=== PATIENT | male | born 1990 | race Caucasian/White ===

== ENCOUNTER 2024-02-09 21:39 | Emergency (ER) | payer OTHER, SELFPAY ==
[2024-02-09] VITALS (8 sets, daily range): BP systolic 144–179; BP diastolic 75–103; PULSE 70–95; RESP 15–26; TEMP 36.3; O2SAT 97–100
--- NOTE | ~2024-02-09 | XR_ITS ---
EXAMINATION: XR chest 1V portable Exam Date/Time: 02/09/2024 22:19 CDT HISTORY: MID chest pain X 45 MINUTES Comparison: None. RESULT: Lines, tubes, and devices: None. Lungs and pleura: Clear. Cardiomediastinal silhouette: Unremarkable. Other: No acute osseous or upper abdominal finding. IMPRESSION: No acute cardiopulmonary process. Reviewed, dictated and finalized at location K.
--- NOTE | 2024-02-09 21:50 | ECG_ITS ---
Test Date: 2024-02-09 21:56:14 Measurements Intervals [place] Rate: 82 P: 39 ND: 137 QRS: 1 QRSD: 92 T: 5 QT: 359 QTc: 420 Interpretive Statements SINUS RHYTHM No previous ECG available for comparison Electronically Signed On 02-10-2024 08:48:39 CDT by Walt Sorenson M.D.
--- NOTE | 2024-02-09 22:18 | ED.GENADULT ---
HPI - General Adult General Chief complaint: Chest Pain Stated complaint: Chest Pain Time Seen by Provider: 02/09/24 22:08 Source: patient Mode of arrival: ambulatory Limitations: no limitations History of Present Illness HPI narrative: patient complained of sharp chest pain and shortness of breath difficulty breathing for about 40 minutes but resolved upon coming into the emergency department. Has a history of a abrasion to his left calf has been treated for cellulitis after he slid into [employer] 8 days ago. He started antibiotics about 5 days ago. He had a lot of swelling in his left leg associated with the injury and the urgent care provider thought if he was not better in a couple days that he might need of ultrasound to rule out a blood clot. He has gotten better and better in the swellings slowly decreased until he started having chest pain tonight and shortness of breath and so he came to the emergency department. Patient stated his chest pain and shortness of breath lasted about 40 minutes while he was watching a movie with his significant other and resolved just before coming to the emergency department. Said it was hard to breathe but now his chest feels fine has no chest pain. His leg is not bothering him either. Patient denies any problems walking talking seeing or hearing fever cough runny nose sore throat problems voiding or stooling swelling lumps or bumps. Denies any other complaints. Related Data Home Medications Medication Instructions Recorded Confirmed No Home Medications 02/09/24 02/09/24 Allergies Allergy/AdvReac Type Severity Reaction Status Date / Time No Known Allergies Allergy Verified 02/09/24 22:02 Review of Systems Review of Systems: All systems reviewed & are unremarkable except as noted in HPI and below Exam Narrative: White male patient with no apparent distress.? Head normocephalic, atraumatic.? Eyes conjunctiva pink sclera nonicteric.? Extraocular movements are intact.? Ears externally normal.? Oropharynx is clear with moist mucous membranes without exudates.? Neck is supple nontender no lymphadenopathy.? Back is nontender.? Lungs are clear.? Heart is regular rate and rhythm without murmurs gallops or rubs.? Chest wall nontender. Abdomen is soft and nontender no hepatosplenomegaly or masses no CVA tenderness no abdominal bruits.? Extremities no cyanosis clubbing or edema.? Skin is warm and dry. Left calf healing abrasion with no tenderness negative Homans sign bilaterally. Neurological patient is alert and oriented x4.? Motor and sensory grossly intact.? Gait is normal. Course Vital Signs Vital signs: Vital Signs Pulse Rate 72 02/09/24 21:45 Pulse Oximetry 97 02/09/24 21:45 Oxygen Delivery Room Air 02/09/24 21:45 Temperature 36.3 C L 02/09/24 21:50 Pulse Rate 94 02/09/24 23:05 Respiratory Rate 20 02/09/24 23:05 Blood Pressure 149/77 H 02/09/24 23:05 Pulse Oximetry 98 02/09/24 23:05 Oxygen Delivery Room Air 02/09/24 22:00 Medical Decision Making MDM Narrative Medical decision making narrative: Patient was placed in Room # Three with his girlfriend History and physical was performed. CBC coags CMP D-dimer troponin chest x-ray all were unremarkable. 2 hour troponin negative Independent Historian: girlfriend External Source Review: Differential Dx includes but not limited to: acute coronary syndrome DVT PE pleuritis Medications were Reviewed: None Independently Interpreted by me: EKG showed sinus rhythm at a rate of [address] axis normal [address] T-wave impression normal EKG as independently interpreted by me. Meds, treatment, ED course: patient Remained pain-free and hemodynamically stable during his emergency stay. Social Situation Impacting Patients Care: Positive family history of heart disease. His uncle had heart attack in his 40s his dad had heart attack in his early 50s and had a total of 3 heart attacks
[2024-02-09 22:26] LABS: Basophils Absolute Auto 0.05 K/mm3 (0.00-0.10); Basophils Percent Auto 0.6 % (0.0-1.0); Eosinophils Absolute Auto 0.47 K/mm3 (0.02-0.50); Eosinophils Percent Auto 6.1 % (1.0-6.0); Hemoglobin 14.9 g/dL (14.0-18.0); Immature Granulocyte Absolute 0.02 K/mm3 (0.00-0.00); Immature Granulocyte Percent A 0.3 % (0.0-0.0); Lymphocytes Percent Auto 40.2 % (18.0-42.0); Mean Corpuscular HGB Conc 34.7 g/dL (32-36); Mean Corpuscular Hemoglobin 30.7 pg (27.0-31.0); Mean Corpuscular Volume 88.5 fL (78.0-102.0); Mean Platelet Volume 11.2 fl (8.7-11.0); Monocytes Absolute Auto 0.75 K/mm3 (0.10-0.90); Monocytes Percent Auto 9.7 % (2.0-11.0); Neutrophils Absolute Auto 3.33 K/mm3 (1.70-7.20); Neutrophils Percent Auto 43.1 % (50.0-70.0); Platelet Count Result 320 K/mm3 (150-420); Red Blood Count 4.86 M/mm3 (4.70-6.10); Red Cell Distribution Width 11.5 % (11.6-14.4); White Blood Count 7.7 K/mm3 (4.8-10.8)
[2024-02-09 22:40] LABS: D Dimer 0.36 mg/L (0.19-0.50); INR 0.9; Partial Thromboplastin Time 25.4 Sec (23.9-30.70); Prothrombin Time 9.9 Seconds (9.50-12.1)
[2024-02-09 22:41] LABS: Alanine Aminotransferase 47 U/L (16-63); Albumin Level 3.9 g/dL (3.4-5.0); Alkaline Phosphatase 65 U/L (46-116); Aspartate Amino Transferase 23 U/L (15-37); Bilirubin,Total 0.3 mg/dL (0.00-1.00); Blood Urea Nitrogen 15 mg/dL (7-18); Calcium 8.5 mg/dL (8.5-10.1); Chloride 101 mmol/L (98-108); Estimated CRCL calculation 97 ml/min; Estimated Glomerular Filt Rate > 60; Glucose 109 mg/dL (70-99); Osmolality Calculated 287 mOsm/kg (285-295); Potassium 3.6 mmol/L (3.5-5.1); Sodium 138 mmol/L (136-145); Total Protein 7.5 g/dL (6.4-8.2)
[2024-02-09 22:46] LABS: Troponin I < 4.0 ng/L (0.00-60.4)
[2024-02-09 22:50] LABS: Anion Gap 9 mmol/L (4-12); Carbon Dioxide 28 mmol/L (21-32)
--- NOTE | 2024-02-09 23:20 | PC.NURSE ---
Pt resting, he denies any pain at this time. VSS, POC for another 2nd trop explained to pt. Monitor shows NSR, call iqbal at side. Pt given ice water, no other needs at this time.
[2024-02-10 00:40] LABS: Troponin I < 4.0 ng/L (0.00-60.4)
[2024-02-10 00:52] VITALS: BP 139/82; PULSE 78; RESP 18; O2SAT 98
== END 2024-02-10 00:52 | disposition home or self-care (01) ==
PROVIDERS: Emergency Provider Emergency Medicine
DX: R07.89 Other chest pain (principal)
CPT/HCPCS: 36415; 71045; 80053; 84484; 85025; 85380; 85610; 85730; 93005; 99284